=== PATIENT | male | born 1960 | race African-American/Black ===

== ENCOUNTER 2025-03-29 02:01 | Emergency (ER) | payer OTHER ==
[~2025-03-29] VITALS: Ht 185.4 cm; Wt 111.1 kg
[~2025-03-29 02:01] MED LIST: AMLO2.5T2 PO; ATEN25TA PO
[2025-03-29] MEDS ORDERED: GABA-532 PO (02:16)
[2025-03-29] MEDS ORDERED: GABAPENTIN 100 MG CAPSULE ONE (02:21)
[2025-03-29] MEDS: GABAPENTIN 100 MG CAPSULE PO ONE (02:27)
[2025-03-29 02:48] VITALS: BP 165/105; TEMP 98.2; O2SAT 96
== END 2025-03-29 02:48 | disposition home or self-care (01) ==
LOC: ER 02:12
DX: G89.29 Other chronic pain (principal); M79.672 Pain in left foot; G62.9 Polyneuropathy, unspecified; I10 Essential (primary) hypertension; Z79.899 Other long term (current) drug therapy; Z85.038 Personal history of other malignant neoplasm of large intestine; Z91.148 Patient's other noncompliance with medication regimen for other reason; Z60.2 Problems related to living alone